=== PATIENT | female | born 1980 ===

== ENCOUNTER → 2019-03-15 | Outpatient (CLI) | payer OTHER ==
[~2019-03-15] MED LIST: ERGO400 PO; Glyburide5 MG; Humulin R500 UNIT/1; IBUP800; INSULANPEN; LABE100 PO; LABE200 PO; METF500 PO; OXYACE5T; SERT50 PO; Verotin-Gr Cap1 EACH PO
== END | disposition home or self-care (01) ==
LOC: PLD 10:09 → LAB SHORT 10:09
DX: L82.1 Other seborrheic keratosis (principal); D48.5 Neoplasm of uncertain behavior of skin
CPT/HCPCS: 88305